=== PATIENT | male | born 1950 | race Caucasian/White ===

== ENCOUNTER → 2023-10-02 12:31 | Outpatient (REF) | payer OTHER, SELFPAY | LOC: DHCBC/DCA 12:31 | PROVIDERS: ATTENDING PHYSICIAN Internal Medicine Cardiovascular Disease; FAMILY PHYSICIAN Nurse Practitioner Primary Care | DX: I25.810 Atherosclerosis of coronary artery bypass graft(s) without angina pectoris (principal) | CPT/HCPCS: 78452; 93017; A9500; J2785 ==

== ENCOUNTER 2023-10-23 07:09 | Day surgery (SDC) | payer OTHER, SELFPAY ==
[2023-10-17 07:56] LABS: % Basophils 0.8 % (0-2); % Eosinophils 8.8 % (0-6); % Immature Granulocytes 0.2 % (0-0.5); % Lymphocytes 25.8 % (20.5-51.1); % Monocytes 9.4 % (1.7-9.3); Absolute Basophils 0.1 10^3/uL (0-0.2); Absolute Eosinophils 0.6 10^3/uL (0-0.7); Absolute Lymphocytes 1.7 10^3/uL (1.2-3.4); Absolute Monocytes 0.6 10^3/uL (0.1-0.6); Absolute Neutrophils 3.6 10^3/uL (1.4-6.5); Hematocrit 41.1 % (39.0-52.0); Hemoglobin 14.5 g/dL (13.0-18.0); Mean Corp Hgb Conc. 35.3 g/dL (33.0-37.0); Mean Corpuscular Hgb 29.7 pg (27.0-31.0); Mean Platelet Volume 9.3 fL (7.4-10.4); Nucleated Red Blood Cells % 0 % (-); Platelet Count 179 10^3/uL (130-400); Red Blood Cell Count 4.89 10^6/uL (4.70-6.10); Red Cell Dist. Width 13.1 % (11.5-14.5); White Blood Cell Count 6.6 10^3/uL (4.8-10.8)
[2023-10-17 08:59] VITALS: BMI 29.5
--- NOTE | 2023-10-17 09:08 | HPS.HSE ---
Family Physician
-
Family Physician: Tracey Nieto
Chief Complaint
-
Abnormal stress test. Coronary artery disease.
History of Present Illness
The patient is a 73 year old male presenting today with a history of coronary artery disease. He previously underwent a CABG x3 in 2011 for obstructive disease. He does experience exertional angina associated with this diagnosis. His
angina is described as a generalized chest 'ache' that will often radiate down his bilateral arms and occasionally to his jaw. His angina is relieved with rest and with Nitroglycerin as needed. Despite medical therapy with Isosorbide and Aspirin,
his angina is, reportedly, progressively worsening. He underwent a nuclear stress test on 10/02/2023 which demonstrated a reversible defect in the basal inferior consistent with ischemia. Although his nuclear stress test only revealed a small zone
of ischemia, the patient will proceed with a left cardiac catheterization and possible stenting of the left main coronary artery to try and facilitate further symptom relief. He denies any new complaints today such as chest pain and shortness of
breath at rest, palpitations, nausea, vomiting, diarrhea, lightheadedness, dizziness, cough, sore throat, or fever.
Medical History
Past Medical History
Past Medical History: Reports Other
Additional Past Medical History:
1. Abnormal stress test.
2. Coronary artery disease, status post CABG x3 2011.
3. Hyperlipidemia.
4. Peripheral vascular disease, status post bilateral kissing stents to ostial iliacs 2011.
5. Reported subclavian steal syndrome with remote near syncope.
6. Mild-moderate aortic stenosis.
7. Left lower lobe pulmonary nodule.
8. Right lower lobe pneumonia with associated sepsis 2013.
9. GERD.
10. Greco's esophagus.
11. Diverticulosis with remote diverticulitis.
12. Partial bowel obstruction 2014.
13. Osteoarthritis.
14. Remote history of tobacco abuse.
Past Surgical History: Reports Other
Additional Past Surgical History:
1. CABG x3.
2. Bilateral kissing stents to ostial iliacs.
3. Left knee partial medial meniscectomy.
4. Left inguinal hernia repair.
5. Umbilical hernia repair.
6. Hemorrhoidectomy.
7. Colonoscopy x3.
8. Sigmoidoscopy.
9. Endoscopy.
Social History
Tobacco: Former Smoker (He is a former less than 1 pack per day cigarette smoker who quit tobacco products altogether in 2011. )
Alcohol: Other (He drinks 6 oz. of wine on the weekends. )
Personal:
Living: Other (He lives in a 2 story townhouse with his . )
Family History
Family History: Not pertinent
Allergies / Home Medications
Allergy/Medication List:
Home medications:
1. Aspirin 81 mg p.o. daily.
2. CoQ10 300 mg p.o. at noon.
3. Isosorbide mononitrate 90 mg p.o. daily.
4. Metoprolol Succinate 25 mg p.o. daily.
5. Multivitamin 1 tablet p.o. daily.
6. Nitroglycerin 0.4 mg sublingual every 5 minutes as needed (max 3 doses).
7. Omeprazole 20 mg p.o. every evening.
8. Probiotic 1 dose p.o. at noon.
9. Rosuvastatin 20 mg p.o. every evening.
Allergies: Amiodarone. Percocet/Oxycodone.
Review of Systems
-
A 12 point ROS was completed and negative except as noted: Yes
Physical Exam
Vital Signs
Blood pressure 114/68. Heart rate 55. Respirations 18. Pulse ox 98% on room air.
Height 5 feet, 5 inches. Weight 80.5 kg. BMI 29.5.
Physical Exam
General: Well Developed, Well Nourished and No Apparent Distress
HEENT: NormoCephalic, Moist mucous membranes, Atraumatic and PERRLA
Respiratory: Clear
Cardiac: Regular Rhythm
GI: Soft, Non Tender and Non Distended
Musculoskeletal: No Edema and Normal Gait & Station
Skin: Warm and Dry
Neuro: AO x 3 and Nonfocal/grossly intact
Laboratory Results
-
10/17/23 07:15
EKG 10/17/2023: Sinus bradycardia with marked sinus arrhythmia.
Nuclear stress test 10/02/2023: Reversible defect in the basal inferior consistent with ischemia. The ejection fraction is 58%. This is a moderate risk study.
Cardiac catheterization 07/18/2022: Mild to moderate stenosis with mean gradient 21 mmHg across the aortic valve. Normal left ventricular function with EF 63%. Severe [place] triple-vessel CAD as described with patent HUTCHINS LAD and patent SVG-OM 2-RPL
bypass grafts. Medical therapy continued for his coronary artery disease.
Impression/Plan
-
IMPRESSION/PLAN:
1. Abnormal stress test and coronary artery disease: The patient is in need of a left cardiac catheterization with Dr. Margarito English on 10/23/2023. The benefits and risks of the procedure have been explained to the patient. The patient understands
these risks and wishes to proceed. He is aware to continue his daily baby Aspirin up to and including the morning of his procedure.
[2023-10-23] VITALS (14 sets, daily range): BP systolic 89–140; BP diastolic 28–80
[2023-10-23] MEDS: NSS 242 ML IV (07:50)
[2023-10-23 09:53] LABS: ACT-LR - POC 290 Seconds (116-155)
--- NOTE | 2023-10-23 10:38 | ITS.CL.CATH ---
[facility] - Catheterization
Cardiac Catheterization
Procedure Report:
CARDIAC CATHETERIZATION REPORT
Date of Procedure: 10/23/2023
Referring: Margarito English MD
Indication: Angina refractory to maximally tolerated medical therapy in a patient with known CAD
HEMODYNAMIC DATA
AO: 136/67
LV: 136/15
LEFT VENTRICULOGRAPHY: Normal left ventricular wall motion with EF 59%
CORONARY ANGIOGRAPHY
Dominance: Right
Left Main: 90% ostial stenosis
LAD: Mild proximal disease with subtotal occlusion of the mid LAD just distal to the takeoff of a very large second diagonal branch. After stenting of the LAD it was apparent that there is high-grade disease at the origin of the second diagonal
branch and moderate to severe disease in the midportion of D2
Circumflex: Small caliber vessel with severe proximal disease. OM1 is tiny. OM 2 is large and fills via the proximal limb a patent sequential vein graft. The circumflex terminates with a tiny OM 3. There is only mild disease in OM 2 distal to
the vein graft touchdown site.
RCA: The RCA is proximally occluded. The large RPL fills via the distal limb of the sequential vein graft. There is backfilling to the AV groove branch supplying a more distal terminal right posterolateral branch and backfilling through severe AV
groove disease to supply a moderate-sized diffusely diseased RPDA
Bypass grafts:
1. The left internal mammary graft to the LAD is widely patent with excellent runoff
2. The sequential vein graft to OM 2 and RPL is widely patent with excellent runoff at both touchdown sites.
Left subclavian angiography: There is angiographically ambiguous angulated stenosis of the left subclavian artery proximal to the takeoff of the vertebral artery. There is a measure gradient of 30 mmHg from the proximal left subclavian artery as
compared with the left arm cuff pressure.
Angioplasty: At the conclusion of the diagnostic procedure we proceeded with PCI of the severe ostial left main coronary artery stenosis. My hope was that improving antegrade flow through the left main with perfuse the large second diagonal branch
which is not receiving flow from the HUTCHISN-LAD graft. Heparin was used for anticoagulation. An EBU 3.5 guide catheter was used. A BMW wire was passed into the distal aspect of the second diagonal branch. Angioplasty of the ostial left main was
accomplished with a 2.5 x 12 [place] balloon to 12 jesus. We then placed a 3.5 x 12 [place] B[place] which was deployed at 14 jesus and then postdilated with a 3.5 NC Euphora to 17 jesus. The angiographic result was outstanding. Once excellent antegrade flow
has been restored, it was clear that there was significant disease at the origin of D2. As a 3.0 x 18 [place] BENJAMÍN to the target location but it would not cross the lesion. Accordingly the stent was removed and predilatation accomplished with a 2.5 x
12 E[place] to 12 jesus. A guide liner was placed to enhance backup support. This allowed us to advance the 3.0 x 18 [place] to the target location at the origin of D2 where was deployed at 14 jesus then postdilated with a 3.0 NC Euphora to 17 jesus.
More distally in D2 we gently ballooned an area using a 2.25 x 12 [place]. The final angiographic result was outstanding.
Closure Device: 6 [place] Angio-Seal RFA
Radiation (mGy): 702
DAP (cm2.Gy): 56.2
Fluoroscopy time: 17.1 minutes
CONCLUSIONS
1: Severe multivessel [place] CAD as described with patent HUTCHINS-LAD and SVG-OM2-RPL bypass grafts
2: Left subclavian artery stenosis with gradient of 30 mmHg between central aortic pressure and left arm cuff pressure
3. Successful stenting of 90% ostial left main stenosis using 3.5 x 12 [place] BENJAMÍN
4. Successful stenting of 80% ostial/proximal D2 stenosis using 3.0 x 18 [place] BENJAMÍN
5. Successful PTCA of mid D2 stenosis using 2.25 mm balloon
6. Recommend dual antiplatelet therapy for 12 months
Copy to: Margarito English MD, Tracey Nieto, AMANDA
Margarito English MD, [facility], [facility]
[2023-10-23] MEDS: TYLENOL 650 MG PO (11:44)
[2023-10-23] MEDS: NSS 1000 IV ×2 (11:49→12:17)
[2023-10-23 13:08] LABS: ACT-LR - POC > 397 Seconds (116-155)
--- NOTE | 2023-10-23 15:01 | CM ---
Reviewed chart. Met with and Mrs. Márquez to review discharge plans. He states prior to admission he resides with his spouse in a two story home with two steps to enter. He states he has a full flight of steps to get to bedroom/full
bathroom. He states he has a powder room on the first floor. He states prior to admission he was independent with ambulation and adls. He states he does not have any DME in the home. He states he has a prescription plan and uses [facility]. The
discharge plan is to return home with his spouse when medically stable.
[2023-10-23] MEDS: ULTRAM 25 MG PO (16:04)
--- NOTE | 2023-10-23 16:22 | PTCARENOTE ---
Pt received post cath at 1130. Pt c/o of mild chest discomfort. VSS, room air 98%. Right groin site soft, dressing clean and dry. Pt oob ambulating at 1430. Pt started c/o of right groin and right lower back discomfort. Monique Babcock [employer] notified and
medicated with ultram 25mg po.
[2023-10-23] MEDS: CRESTOR 20 MG PO (22:28)
--- NOTE | 2023-10-24 00:51 | PTCARENOTE ---
Pt. has no complaints of chest pain/discomfort, VSS, NSR with PAC's on the monitor. Right groin dressing CDI with no S&S hematoma, circulation intact. Pt. currently sleeping.
[2023-10-24 03:51] VITALS: BP 133/67
[2023-10-24 05:28] LABS: Hematocrit 40.2 % (39.0-52.0); Hemoglobin 13.7 g/dL (13.0-18.0); Mean Corp Hgb Conc. 34.1 g/dL (33.0-37.0); Mean Corpuscular Hgb 29.8 pg (27.0-31.0); Mean Corpuscular Volume 87.4 fL (80.0-94.0); Mean Platelet Volume 9.5 fL (7.4-10.4); Platelet Count 148 10^3/uL (130-400); Red Cell Dist. Width 12.9 % (11.5-14.5)
[2023-10-24 05:54] LABS: Blood Urea Nitrogen 14 mg/dl (9-20); Calcium 9.4 mg/dl (8.4-10.2); Carbon Dioxide 24 mmol/L (22-30); Chloride 107 mmol/L (98-107); Estimated Creatinine Clearance 73 ml/min; Glucose 102 mg/dl (70-99); HDL Cholesterol 37 mg/dl; LDL Cholesterol, Calculated 33 mg/dl; Potassium 4.2 mmol/L (3.5-5.1); Sodium 139 mmol/L (135-145); Total Cholesterol 89 mg/dl (50-199); Triglyceride 98 mg/dl (10-149); Very Low Density Lipoprotein 19 mg/dl (0-30); eGFR > 60.00
[2023-10-24 07:01] VITALS: BP 122/64
[2023-10-24] MEDS: IMDUR (EXTENDED RELEASE) 90 MG PO (07:14)
[2023-10-24] MEDS: LOW STRENGTH ASPIRIN 81 MG PO (07:14)
[2023-10-24] MEDS: PLAVIX 75 MG PO (07:15)
[2023-10-24] MEDS: PROTONIX 40 MG PO (07:15)
[2023-10-24] MEDS: TOPROL XL 25 MG PO (07:15)
--- NOTE | 2023-10-24 08:40 | W.PN.CARDCBS ---
Today's Communication / Plan
-
post PCI LM, D2
DAPT
Cardiac rehab c/s
home today
Impression / Plan
-
PCP: Tracey Nieto PA-C
CDY: Margarito English MD
Impression/Plan:
-CAD/CABGx3 2011 - Abnormal NST with exertional angina, s/p PCI LM and D2 x 2 BENJAMÍN and balloon angioplasty of mid D2, patent bypass grafts
no CP post, groin stable, tele SR with PAC's
DAPT ASA/Plavix, continue isosorbide
continue rosuvastatin
cardiac rehab c/s
f/u CBC 2 weeks
-HLD - lipid profile great LDL 33 continue rosuvastatin 20mg
-GERD/BE - switch omeprazole to protonix while on plavix
-PVD prior iliac stent 2011
-LLL pulmonary nodule
-Diverticulosis
-OA - needs knee replacement - defer for at least 6mo, ok to have cortisone injection as long as no hold on DAPT
Stable for d/c home today
10/23/23 CONCLUSIONS
1: Severe multivessel [place] CAD as described with patent HUTCHINS-LAD and SVG-OM2-RPL bypass grafts
2: Left subclavian artery stenosis with gradient of 30 mmHg between central aortic pressure and left arm cuff pressure
3. Successful stenting of 90% ostial left main stenosis using 3.5 x 12 [place] BENJAMÍN
4. Successful stenting of 80% ostial/proximal D2 stenosis using 3.0 x 18 [place] BENJAM[place]N
5. Successful PTCA of mid D2 stenosis using 2.25 mm balloon
6. Recommend dual antiplatelet therapy for 12 months
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
Subjective
Date of Service: October 24, 2023
no cp, sob
Objective
Labs:
10/24/23 04:05
10/24/23 04:05
Labs
Hgb 13.7 g/dL (13.0-18.0) 10/24/23 04:05
Hct 40.2 % (39.0-52.0) 10/24/23 04:05
Plt Count 148 10^3/uL (130-400) 10/24/23 04:05
Sodium 139 mmol/L (135-145) 10/24/23 04:05
Potassium 4.2 mmol/L (3.5-5.1) 10/24/23 04:05
BUN 14 mg/dl (9-20) 10/24/23 04:05
Creatinine 0.9 mg/dL (0.7-1.3) 10/24/23 04:05
Glucose 102 mg/dl (70-99) H 10/24/23 04:05
Vital Signs and I&O:
Vital Signs
Temp Pulse Resp BP Pulse Ox
98.5 F 73 20 122/64 98
10/24/23 06:58 10/24/23 08:00 10/24/23 06:58 10/24/23 07:01 10/24/23 08:00
Vital Signs
Temp Pulse Resp BP Pulse Ox
98.5 F 73 20 122/64 98
10/24/23 06:58 10/24/23 08:00 10/24/23 06:58 10/24/23 07:01 10/24/23 08:00
Physical Exam
Physical Exam
NAD, AOX3
S1, S2, RRR, no murmur
bibasilar crackles, no wheeze
SNTND Bsx4
R fem site c/d/i no HT, soft
--- NOTE | 2023-10-24 09:56 | W.DS.TRANS ---
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
-
Discharge Instructions:
Discharge Diagnosis/Procedures Angioplasty and stent x1 to Left Main and x1 to
second Diagonal artery
Diet Low Cholesterol
Driving Restrictions No driving for 24 hours
Other Services Cardiac Rehab
Instructions:
Stand-Alone Forms: DC Instructions- Cath/EP Lab
Changes to Home Medications: Yes
Discharge Medications:
DC Medications w/original date entered in [facility]
metoprolol succinate 25 mg tablet,extended release 24 hr 25 mg PO DAILY 07/18/22
nitroglycerin 0.4 mg sublingual tablet 0.4 mg sublingual Q5M PRN chest pain 07/18/22
Probiotic 1 dose PO NOON 10/15/23
aspirin 81 mg chewable tablet 81 mg PO DAILY 10/15/23
coenzyme Q10 300 mg capsule (Co Q-10) 300 mg PO NOON 10/15/23
isosorbide mononitrate 30 mg tablet,extended release 24 hr 90 mg PO DAILY 10/15/23
multivitamin 1 tab PO DAILY 10/15/23
rosuvastatin 20 mg tablet 20 mg PO HS 10/15/23
clopidogrel 75 mg tablet 75 mg PO DAILY #90 tabs 10/24/23
pantoprazole 40 mg tablet,delayed release 40 mg PO DAILY #90 tabs 10/24/23
Home Medication Changes
new to protonix, plavix
Pending Results: No
--- NOTE | 2023-10-24 10:46 | PTCARENOTE ---
Pt denies any chest pain or sob. OOB ad ruiz in the room and hallway. Right groin site soft, dressing clean and dry. Pt discharged to home with his . Discharge instructions given and reviewed with good understanding and all questions answered.
== END 2023-10-24 11:22 | disposition home or self-care (01) ==
LOC: CATH 07:09
PROVIDERS: Nurse Practitioner; ATTENDING PHYSICIAN Internal Medicine Cardiovascular Disease; FAMILY PHYSICIAN Physician Assistant Medical
DX: I25.119 Atherosclerotic heart disease of native coronary artery with unspecified angina pectoris (principal); Z95.1 Presence of aortocoronary bypass graft; E78.5 Hyperlipidemia, unspecified; I73.9 Peripheral vascular disease, unspecified; Z95.820 Peripheral vascular angioplasty status with implants and grafts; G45.8 Other transient cerebral ischemic attacks and related syndromes; R55 Syncope and collapse; K22.70 Barrett's esophagus without dysplasia; K21.9 Gastro-esophageal reflux disease without esophagitis; K57.90 Diverticulosis of intestine, part unspecified, without perforation or abscess without bleeding; M19.90 Unspecified osteoarthritis, unspecified site; Z87.891 Personal history of nicotine dependence; R94.39 Abnormal result of other cardiovascular function study; Z79.02 Long term (current) use of antithrombotics/antiplatelets; Z79.82 Long term (current) use of aspirin
CPT/HCPCS: 36415; 80048; 80061; 85025; 85027; 85347; 86803; 93005; 93459; C1725; C1760; C1769; C1874; C1894; C9600; Q9967

== ENCOUNTER → 2024-09-15 13:06 | Outpatient (REF) | payer OTHER, SELFPAY | LOC: RCS 13:06 | PROVIDERS: ATTENDING PHYSICIAN Specialist; FAMILY PHYSICIAN Physician Assistant Medical | DX: Z01.818 Encounter for other preprocedural examination (principal) | CPT/HCPCS: 93005 ==

== ENCOUNTER → 2024-12-31 07:01 | Outpatient (REF) | payer OTHER, SELFPAY ==
[2024-12-31 08:43] LABS: Hematocrit 40.5 % (39.0-52.0); Hemoglobin 14.1 g/dL (13.0-18.0); Mean Corp Hgb Conc. 34.8 g/dL (33.0-37.0); Mean Corpuscular Volume 85.8 fL (80.0-94.0); Nucleated Red Blood Cells % 0 % (-); Platelet Count 181 10^3/uL (130-400); Red Cell Dist. Width 13.2 % (11.5-14.5)
[2024-12-31 09:42] LABS: Blood Urea Nitrogen 21 mg/dl (9-20); Calcium 9.8 mg/dl (8.4-10.2); Carbon Dioxide 25 mmol/L (22-30); Chloride 107 mmol/L (98-107); Glucose 108 mg/dl (70-99); Potassium 4.0 mmol/L (3.5-5.1); Sodium 141 mmol/L (135-145); eGFR > 60.00
== END ==
LOC: REG 07:01
PROVIDERS: ATTENDING PHYSICIAN Orthopaedic Surgery; FAMILY PHYSICIAN Physician Assistant Medical
DX: Z01.818 Encounter for other preprocedural examination (principal)
CPT/HCPCS: 36415; 80048; 85025; 93005

== ENCOUNTER → 2025-03-31 14:41 | Outpatient (REF) | payer OTHER, SELFPAY ==
[2025-03-31 15:46] LABS: C-Reactive Protein 5.10 mg/L (0.0-10.00)
== END ==
LOC: REG 14:41
PROVIDERS: ATTENDING PHYSICIAN Physician Assistant Surgical
DX: M25.562 Pain in left knee (principal)
CPT/HCPCS: 36415; 85652; 86140